=== PATIENT | male | born 1975 | race Caucasian/White ===

== ENCOUNTER 2016-12-26 17:26 | Emergency (ER) | payer SELFPAY ==
[~2016-12-26] VITALS: Ht 175.3 cm; Wt 76.2 kg
[2016-12-26 18:30] VITALS: BP 129/81
== END 2016-12-26 18:48 | disposition home or self-care (01) ==
LOC: ER 17:28
DX: L73.9 Follicular disorder, unspecified (principal)
CPT/HCPCS: 99283; A4606; Z7610